=== PATIENT | female | born 1975 | race Caucasian/White ===

== ENCOUNTER → 2020-07-01 14:02 | Outpatient (CLI) | payer BC, SELFPAY ==
--- NOTE | ~2020-07-01 | MM_ITS ---
EXAMINATION: MM screening iqra BI w [place] HISTORY: Screening mammogram TECHNIQUE: Craniocaudal and mediolateral oblique 3-D tomosynthesis images were obtained and synthetic 2-D images were generated. CAD analysis was submitted and interpreted. COMPARISON: 03/26/2016 BREAST PARENCHYMAL COMPOSITION: The breasts are almost entirely fatty. FINDINGS: There is stable focal asymmetry in the upper outer quadrant of the right breast. There is n o evidence of suspicious mass, calcification, or architectural distortion to suggest malignancy in ei ther breast. There has been no suspicious interval change. IMPRESSION: 1. No mammographic evidence of malignancy. 2. Recommend routine screening mammography in one year. BI-RADS Category 2: Benign finding(s). Reviewed, dictated and finalized at location A. RAL RESOURCES ENGINEER
--- NOTE | ~2020-07-01 | US_ITS ---
EXAMINATION: US axilla RT INDICATION: Palpable lumps of the right axilla TECHNIQUE: Targeted ultrasound of the right axilla is performed. COMPARISON: None available FINDINGS: No suspicious cystic or solid mass is identified in the right axilla. There are two normal- appearing right axillary lymph nodes. The visualized axillary soft tissues are normal. IMPRESSION: 1. No specific sonographic correlate is identified for the reported right axillary lumps. Further camelia luation at this time should be based on clinical assessment. Continued follow-up physical examination is recommended. BI-RADS Category 1: Negative Reviewed, dictated and finalized at location A. TRICAL INSTALLATION INSPECTOR IMPRESSION: 1. No specific sonographic correlate is identified for the reported right axill dina lumps. Further evaluation at this time should be based on clinical assessme nt. Continued follow-up physical examination is recommended. BI-RADS Category 1: Negative
== END ==
PROVIDERS: PCP Internal Medicine; Visit Provider Obstetrics & Gynecology
DX: Z12.31 Encounter for screening mammogram for malignant neoplasm of breast (principal); N63.32 Unspecified lump in axillary tail of the left breast
CPT/HCPCS: 76882; 77063; 77067

== ENCOUNTER 2021-03-23 07:49 | Outpatient (CLI) | payer BC, SELFPAY ==
--- NOTE | 2021-03-23 07:57 | ECG_ITS ---
Measurements Intervals [place] Rate: 65 P: 81 MO: 166 QRS: -9 QRSD: 104 T: 32 QT: 405 QTc: 424 Interpretive Statements SINUS RHYTHM LOW QRS VOLTAGE IN PRECORDIAL LEADS INCOMPLETE RIGHT BUNDLE BRANCH BLOCK DELAYED PRECORDIAL R/S TRANSITION BORDERLINE ECG Electronically Signed On 03-23-2021 8:14:01 CDT by Kenan Mello D.O.
[2021-03-23 08:30] LABS: Anion Gap 5 mmol/L (8-16); Blood Urea Nitrogen 17 mg/dL (7-17); Calcium 9.2 mg/dL (8.4-10.2); Carbon Dioxide 31 mmol/L (22-30); Chloride 101 mmol/L (98-107); Estimated Glomerular Filt Rate > 60; Glucose 117 mg/dL (65-110); Potassium 3.7 mmol/L (3.4-5.0); Sodium 137 mmol/L (137-145)
== END 2021-03-23 07:50 | disposition home or self-care (01) ==
LOC: ANHSURGERY 07:53
PROVIDERS: Anesthesiology; PCP Internal Medicine; Visit Provider Obstetrics & Gynecology
DX: N83.209 Unspecified ovarian cyst, unspecified side (principal); I10 Essential (primary) hypertension; Z79.899 Other long term (current) drug therapy; Z01.818 Encounter for other preprocedural examination; I45.10 Unspecified right bundle-branch block
CPT/HCPCS: 36415; 80048; 86850; 86900; 86901; 93005

== ENCOUNTER 2021-03-27 01:37 | Day surgery (SDC) | payer BC, OTHER, SELFPAY ==
[2021-03-20 11:41] VITALS: BMI 39.1
--- NOTE | 2021-03-24 12:17 | PM.IMHP ---
H&P: HPI History of Present Illness Date/Time: 03/24/21 12:17 This is a 46 year female status post hysterectomy RSO who is admitted for laparoscopic left salpingo-oophorectomy. She has had pain and discomfort. Ultrasound showed a large complex left ovarian cyst. Free fluid was also seen. Risks and benefits reviewed including but not exclusive of , aspiration, bleeding, transfusion perforation injury to bowel, bladder, ureters, or other internal organs with need for laparotomy. She received the ACOG handout entitled laparoscopy. She understands this will make her permanently postmenopausal and had the discussion concerning this. Chief Complaint: Pelvic pain and complex ovarian cyst Review of Systems Review of Systems: All systems reviewed & are unremarkable except as noted in HPI and below [facility] Social History Social History Smoking packs per day: 0.5 Smoking cigarettes per day: 10.0 Years smoked: 30 Smoking pack-years: 15.00 Smoking status: Current every day smoker Tobacco type: cigarettes Alcohol intake: never Substance use: never Substance use type: does not use Spiritual care concerns: No Meds Home Medications and Allergies Home Medications Medication Instructions Recorded Confirmed Type alprazolam 0.25 mg PO TID PRN 03/20/21 03/20/21 History losartan-hydrochlorothiazide 1 tablet PO DAILY 03/20/21 03/20/21 History sertraline 25 mg PO DAILY 03/20/21 03/20/21 History Allergies Allergy/AdvReac Type Severity Reaction Status Date / Time NSAIDS (Non-Steroidal Allergy Unknown HIVES Verified 03/20/21 11:39 Anti-Inflamma Exam Const: General: no acute distress Eyes: General: appearance normal, both eyes and all related structures Neck: Neck: supple and no JVD Thyroid: thyroid normal Resp: Effort & Inspection: normal respiratory effort Auscultation: clear to auscultation bilaterally Cardio: Rate: regular rate Rhythm: regular rhythm GI: Inspection: non-distended GI Palp: Yes Soft to palpation, No Tenderness to palpation present (GI) and No Guarding due to palpation present (GI) Auscultation: normal bowel sounds : External Female Exam: normal external appearance Speculum Exam - Vagina: normal appearance of the vagina Speculum Exam - Cervix: Cervix absent Bimanual exam- vagina & uterus: uterus absent Bimanual Exam- Adnexa, other: tender Skin: General skin exam: no rashes or lesions noted Extrem: General: normal to inspection and no edema Psych: Mental Status: mental status grossly normal Affect: normal affect Assessment and Plan Additional Plan Impression: Complex left ovarian cyst Plan: Laparoscopy with possible left salpingo-oophorectomy
[2021-03-27] VITALS (10 sets, daily range): BP systolic 124–148; BP diastolic 73–92; PULSE 63–84; RESP 10–20; TEMP 36.1–36.3; O2SAT 94–99
--- NOTE | 2021-03-27 07:15 | WPDHPUPDATE1 ---
History and Physical Update Update Date/Time: 03/27/21 07:15 History and Physical has been reviewed, including an updated exam of the patient. There are NO changes in the patient's condition. Risks, benefits, and alternatives have been discussed and questions answered. Patient agrees to proceed with procedure.
[2021-03-27] MEDS: ACETAMINOPHEN 500 MG TABLET 1000 MG PO (07:19)
[2021-03-27] MEDS: LACTATED RINGERS 1,000 ML 30 ML IV CONT (07:30)
--- NOTE | 2021-03-27 07:40 | WPDANESEPPF ---
Anes - Initial Pre Proc Eval Procedure: Operation Date: 03/27/21 08:30 Proposed Procedures p Laparoscopic Left Salpingo-oophorectomy - Román Chaudhary MD Date/Time: 03/27/21 07:40 Surgeon: Rmoán Chaudhary MD Pre Op Diagnosis: Pain, Ovarian Cyst Patient Data Age: 46 Gender: F Height: 1.7 m Weight: 112.2 kg Last Vital Signs Temp 36.3 C L 03/27/21 06:53 Pulse 65 03/27/21 06:53 Resp 14 03/27/21 06:53 BP 148/78 H 03/27/21 06:53 Pulse Ox 99 03/27/21 06:53 Allergies Allergy/AdvReac Type Severity Reaction Status Date / Time NSAIDS (Non-Steroidal Allergy Severe HIVES/swelling Verified 03/27/21 07:12 Anti-Inflamma of eyes and lips Home Medications Medication Instructions Recorded Confirmed Type alprazolam 0.25 mg PO TID PRN 03/20/21 03/27/21 History losartan-hydrochlorothiazide 1 tablet PO DAILY 03/20/21 03/27/21 History sertraline 25 mg PO DAILY 03/20/21 03/27/21 History hydrocodone-acetaminophen 1 tablet PO Q4H PRN #30 tablet 03/27/21 Rx Patient hx anesthesia problems: post op nausea/vomiting Family hx anesthesia problems: none Results Review: All pre-operative results and documents have been reviewed as part of the pre-operative evaluation. PMFSH Past Medical History Medical History Anxiety Hypertension Social History Social History Smoking packs per day: 0.5 Smoking cigarettes per day: 10.0 Years smoked: 30 Smoking pack-years: 15.00 Smoking status: Current every day smoker Tobacco type: cigarettes Alcohol intake: never Substance use: never Substance use type: does not use Living arrangements: with family Spiritual care concerns: No Anes - Eval Final PreProcedure Day of Procedure 03/27/21 07:40 Patient weight: obese Heart: regular rate and rhythm Lungs: decreased breath sounds Airway: Mallampati scale class II Neurological: alert and oriented Last oral intake: >/= 8 hours ASA classification: III Emergent: no Anesthetic plan: proceed Anesthesia type and monitoring: general ETT and standard monitoring Results Review: All pre-operative results and documents have been reviewed as part of the pre-operative evaluation. Informed Consent: The patient's anesthetic plan and its attendant risks and benefits were discussed with the patient/family/POA. Questions were solicited and answers provided to the satisfaction of the patient/family/POA.
[2021-03-27] MEDS: MIDAZOLAM HCL (*CRX) 2 MG/2 ML VIAL IV PUSH (07:53)
[2021-03-27] MEDS: SCOPOLAMINE 1.5 MG PATCH TRANSDERM (07:54)
--- NOTE | 2021-03-27 09:12 | W.PM.PROC2 ---
Procedure Note - Detailed Date of Procedure 03/27/21 Pre-op Diagnosis Pain, Ovarian Cyst Post-op Diagnosis same Procedure Performed Laparoscopic left oophorectomy and lysis of adhesions Surgeon Román Chaudhary MD Anesthesia general Indications this is a 46-year-old status post hysterectomy right salpingo-oophorectomy and left salpingectomy admitted for left oophorectomy secondary to severe Findings absent uterus left tube and right ovary to Description of Procedure patient was prepped draped in normal sterile fashion placed in the dorsal lithotomy position. Under excellent general endotracheal anesthesia weighted speculum placed in posterior fornix vagina. A sponge stick placed in the vagina and the bladder drained of clear urine. The weighted speculum was removed and the gloves were changed. A supraumbilical incision made the Veress needle passed in the abdomen. The abdomen filled with CO2 gas 15mmHg. 5mm trocar advanced under direct visualization assuring no injury. The patient placed in Trendelenburg and a suprapubic incision made. The 5mm direct visualization assuring. A left lower quadrant incision made the 10mm trocar advanced under direct visualization assuring injury. The large left ovarian cyst was seen this was stuck to the omentum. This was sharply dissected using the LigaSure until the infundibulopelvic structure left could be skeletonized. This was then clamped, burned and cut placed in Endo-Catch and removed through the left lower quadrant. Irrigation was undertaken to clear and hemostasis was assured. The lower sites removed. The gas removed from the abdomen. The incisions closed with 4 Monocryl and glue after proper incision. All sponge, needle, instrument counts were correct. There were no immediate complications Estimated Blood Loss 5 Drains No Packing No Pathology yes Complications No immediate complications Condition stable Disposition PACU
[2021-03-27] MEDS: fentaNYL CITRATE INJ (*CRX) 100 MCG/2 ML VIAL 25 MCG IV PUSH ×4 (09:26→09:42)
[2021-03-27] MEDS: ONDANSETRON INJ 4 MG/2 ML VIAL IV PUSH (10:25)
[2021-03-27] MEDS: oxyCODONE HCL (*CRX) 5 MG TAB IR PO (10:37)
== END 2021-03-27 11:30 | disposition home or self-care (01) ==
PROVIDERS: PCP Internal Medicine; Visit Provider Obstetrics & Gynecology
PROC: (CPT 49320; principal; 2021-03-27 08:30)
DX: N83.12 Corpus luteum cyst of left ovary (principal); N73.6 Female pelvic peritoneal adhesions (postinfective); F41.9 Anxiety disorder, unspecified; I10 Essential (primary) hypertension; F17.210 Nicotine dependence, cigarettes, uncomplicated; E66.9 Obesity, unspecified; Z68.38 Body mass index [BMI] 38.0-38.9, adult
CPT/HCPCS: 58661; 36415; 80048; 86850; 86900; 86901; 88305; 93005; A9270; J0330; J2250; J2270; J2405; J2704; J3010; J7030; J7120; Q9968